=== PATIENT | female | born 1945 | race Caucasian/White ===

== ENCOUNTER 2024-02-29 14:38 | Emergency (ER) | payer OTHER ==
[~2024-02-29] VITALS: Ht 170.2 cm; Wt 82.6 kg
[~2024-02-29 14:38] MED LIST: ALLO100T PO; ATEN100T PO; FURO40TA5 PO; GABA-534 PO; GLUC100017 PO; LISI-768 PO; METF-440 PO
[2024-02-29 17:51] VITALS: BP 155/80; TEMP 98.4; O2SAT 96
== END 2024-02-29 17:51 | disposition home or self-care (01) ==
LOC: ER 14:41
DX: M25.511 Pain in right shoulder (principal); I10 Essential (primary) hypertension; E11.9 Type 2 diabetes mellitus without complications; Z90.710 Acquired absence of both cervix and uterus; Z79.84 Long term (current) use of oral hypoglycemic drugs; Z79.899 Other long term (current) drug therapy; W01.0XXA Fall on same level from slipping, tripping and stumbling without subsequent striking against object, initial encounter; Y93.89 Activity, other specified; Y92.89 Other specified places as the place of occurrence of the external cause; Y99.8 Other external cause status
CPT/HCPCS: 73030-TC